=== PATIENT | female | born 1980 | race Caucasian/White ===

== ENCOUNTER 2016-11-27 09:41 | Emergency (ER) | payer OTHER ==
--- NOTE | 2016-11-27 10:04 | UCPHY ---
H & P Time Seen by Provider: 11/27/16 09:56 Patient Type: Established HPI/ROS: Chief complaint. Rib pain HPI. 35-year-old female was snowboarding 2 days ago and fell onto her left side. She had her cell phone in her left chest pocket and then her left elbow also was between the ground and her chest wall. She has pain to her left chest in 2 places. Under her left breast and then laterally under the left armpit. Hurts to breathe and hurts to move but otherwise not particularly short of breath. No other injury in particular to head or neck. 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 This aggravates her symptoms ROS Constitutional. no fever/chills, no weakness Eyes. no problems with vision ENT. no sore throat, no nasal drainage Cardiovascular. Left-sided chest pain Respiratory. no shortness of breath, no cough Abdominal. no abdominal pain, no nausea/vomiting, no diarrhea . no problems urinating MS. no calf pain/swelling, no neck/back pain, no joint pain Skin. no rash Lymph. no swollen glands Neuro. no headache, no dizziness, no difficulty walking or with speech Past Medical/Surgical History: Healthy Social History: , nonsmoker, no alcohol Smoking Status: Never smoked Physical Exam: General Appearance: Alert pleasant well-developed female mild distress vital signs are stable Eyes: Pupils equal and round no pallor or injection. ENT, Mouth: Mucous membranes are moist. Respiratory: There are no retractions, lungs are clear to auscultation. Cardiovascular: Regular rate and rhythm. Gastrointestinal: Abdomen is soft and nontender, no masses, bowel sounds normal. Neurological: Awake and alert, sensory and motor exams grossly normal. Skin: Warm and dry, no rashes. Musculoskeletal: Neck is supple nontender. Chest wall is tender at T7 midclavicular line and in the T6, 7 area mid axillary line. Extremities symmetrical, full range of motion. Psychiatric: Patient is oriented X 3, there is no agitation. Constitutional: Initial Vital Signs Temperature (C) 36.7 C 11/27/16 10:02 Heart Rate 82 11/27/16 10:02 Respiratory Rate 16 11/27/16 10:02 Blood Pressure 163/108 H 11/27/16 10:02 O2 Sat (%) 95 11/27/16 10:02 O2 Delivery Mode Room Air Allergies/Adverse Reactions: No Known Allergies Allergy (Unverified 06/09/11 16:14) Home Medications: Medication Instructions Recorded ETHINYL ESTRADIOL/DROSPIRENONE 04/19/13 [ABBY 28 TABLET] Hydrocodone/APAP 5/325 [Flint 1 each PO Q4-6PRN PRN #14 tab 11/27/16 5/325 (*)] Medical Decision Making - Diagnostics Imaging: Chest x-ray interpreted by me shows no evidence of fracture or pneumothorax ED Course/Re-evaluation: Re-evaluation and patient is stable. She and I discussed imaging study results, treatment plan including criteria for return importance of follow-up and further evaluation. She expresses understanding and agreement Work excuse for the next 2 days Differential Diagnosis: I considered rib fracture, contusion, pneumothorax. This appears to be contusion Departure - Departure Disposition: Home, Routine, Self-Care Clinical Impression: Chest wall contusion Qualifiers: Encounter type: initial encounter Laterality: left Qualified Code(s): S20.212A - Contusion of left front wall of thorax, initial encounter Condition: Good Instructions: Rib Contusion (ED) Additional Instructions: Heat to sore area. Ibuprofen 600 mg every 6 hours, hydrocodone in addition as needed for pain. Activity as tolerated. Return for worsening pain, trouble breathing. Re-evaluation in 4-5 days if not improving Referrals: NONE *PRIMARY CARE P,. [Primary Care Provider] - As per Instructions Lin Cisneros MD [Medical Doctor] - 3-4 days, if not improved Stand Alone Forms: Work Excuse Prescriptions: Hydrocodone/APAP 5/325 [Flint 5/325 (*)] 1 each PO Q4-6PRN PRN #14 tab PRN Reason: Pain, Moderate - PQRS PQRS Measurement: 134: Depression screening and followup, PRIME MD-PHQ2 (12 years and older) Over the last 2 weeks, how often have you been bothered by any of the following problems? 1. Feeling down, depressed, or hopeless? 2. Little interest or pleasure in doing things? Patient answered no to both 1 and 2 130: Documentation of medications. Reviewed all patient medications, doses, route and frequency. 226: Do you smoke? No.
[2016-11-27 10:06] VITALS: RESP 16; TEMP 98.1
[2016-11-27 11:18] VITALS: BP 144/94; PULSE 64; O2SAT 97
== END 2016-11-27 10:45 | disposition home or self-care (01) ==
LOC: CED 09:41
DX: S20.212A Contusion of left front wall of thorax, initial encounter (principal); W19.XXXA Unspecified fall, initial encounter
CPT/HCPCS: 71010-PO; 99214-PO; G0463-PO

== ENCOUNTER 2018-09-08 11:10 | Emergency (ER) | payer OTHER ==
[2018-09-08 12:32] LABS: PLATELET COUNT 277 10^3/uL (150-400)
[2018-09-08] MEDS ORDERED: IOPAMIDOL (ISOVUE 370) 100 ML BTL IV ONE (14:25)
--- NOTE | 2018-09-08 14:29 | EDPHY ---
HPI/HX/ROS/PE/MDM Narrative: CLINICAL IMPRESSION: Right lower quadrant pain ASSESSMENT/PLAN: Patient is a 37 year old female with no significant medical history who presents to the emergency department complaining of intermittent and escalating RLQ pain that has been ongoing for 3 weeks. Patient is afebrile, in no acute distress not toxic appearing. Her abdomen was soft, mild tenderness to palpation in the very low RLQ. CBC revealed no leukocytosis or shift. Her vital signs were reviewed and there was no evidence of sepsis or serious bacterial illness. BMP grossly normal. UA dip with no evidence of infection. Pelvic US with normal flow, no adnexal mass, no evidence of TOA or torsion. Discussed CT for further evaluation however patient refuses at this time and would prefer continuing workup as an outpatient. It is unclear the exact etiology of her pain however her benign abdominal exam and normal laboratory studies were very reassuring. With symptoms ongoing for 3 weeks, I have a low clinical suspicion for etiologies to include acute appendicitis, cholecystitis, kidney stone, pancreatitis, pyelonephritis, perforated viscus, diverticulitis, hernia, AAA, mesenteric ischemia, or additional emergent intra-abdominal process. negative which rules out ectopic . On repeat examination the patient is well appearing, her abdomen remained soft without evidence of a surgical abdomen. The patient is well established with her primary care provider although we do not have one listed and understands the importance of close follow-up. Strict return precautions discussed- she will return for worsening or uncontrolled pain, fever, N/V, CP, SOB or for any other new, worsening or worrisome symptoms. Patient and both verbalize understanding and are in agreement with the plan. Case discussed with Dr. Pagan DIFFERENTIAL DX: Abdominal pain in a female including but not limited to ovarian cyst, pelvic inflammatory disease, ovarian torsion, urinary tract infection, and appendicitis. ED COURSE: 1332: Case discussed with Dr. Pagan 1425: Results discussed with Dr. Pagan. Patient refusing CT scan at this time. 2:47 p.m.: Urine dip with ketones only, no leukocyte esterase or nitrites. No findings to suggest UTI. CHIEF COMPLAINT: Abdominal pain HPI: Patient is a 37 year old female with no significant medical history who presents to the emergency department complaining of intermittent and escalating RLQ pain that has been ongoing for 3 weeks. Patient reports remote PRP injection into her sacrum for treatment of sacral injury mid June. During her recovery she started to experience intermittent RLQ pain described as sharp in nature. It escalated around Carrie and since then she felt that it was significantly improving until 3 days ago. Over the last 3 days she feels that the pain is becoming more frequent, worsens when she is in the seated position. She denies any fever, chills, CP, SOB or vomiting. She has experienced nausea when pain is most intense, no change in appetite. Denies urinary symptoms to include dysuria, hematuria or increased frequency. Patient has loose stools at baseline, no change. No melena or hematochezia. LMP June, she is on BCP. No history of ovarian cyst or abdominal surgery. PMH: Denies Pertinent Past Surgical History: Denies Family History: Non contributory Social History: Denies smoking, denies illicit drug use REVIEW OF SYSTEMS: All other systems negative Constitutional: No fever, no chills, appetite change. Eyes: No discharge, vision change. ENT: No sore throat, congestion, ear pain. Cardiovascular: No chest pain, no palpitations. Respiratory: No cough, no shortness of breath. Gastrointestinal: RLQ/pelvic pain. No vomiting or constipation. Genitourinary: No hematuria, dysuria or flank pain. Musculoskeletal: No back pain, joint swelling, joint pain, myalgias. Skin: No rashes, color change. Neurological: No headache, dizziness, weakness. PHYSICAL EXAM: General Appearance: Well developed, well nourished, no acute distress and not toxic appearing. HENT: Normocephalic, atraumatic. Bilateral external ears are normal. Bilateral tympanic membranes are normal with pearly tian reflex. Nares are clear, mucosa is pink. Oropharynx is clear, uvula is midline. There is no tonsillar enlargement or exudate. The dentition is normal. Eyes: PERRLA, no acute vision change, nystagmus, swelling, discharge, pain or photosensitivity. Conjunctiva pink, no pallor or injection. Neck: Supple, nontender, no lymphadenopathy, no midline pain, FROM, no meningismus. Respiratory: There are no retractions, lungs are clear to auscultation. Cardiac: Regular rate and rhythm, no murmurs or gallops. Gastrointestinal: Her abdomen is soft and nondistended. She is tender in the very low RLQ. Negative McBurney point tenderness, negative Grullon's sign and negative Rovsing. No masses/hernia, no rigidity, guarding or focal peritoneal findings. Neurological: Alert and oriented x 3, CN 2-12 grossly intact, normal gait no ataxia, DTR's intact, normal sensation and strength. Skin: Warm, dry, no rashes, no nodules on palpation. Musculoskeletal: Extremities are symmetrical, full range of motion, no tenderness, deformity, swelling, or erythema. Psychiatric: Patient is oriented X 3, there is no agitation. MEDICAL DECISION MAKING: Patient was seen with Dr. Pagan. Diagnosis: RLQ Pain. New, requires workup Summary: See Assessment and Plan for summary of ED visit. Clinical lab tests: ordered / reviewed. Independent visualization of images, tracing, or specimens: Yes. Decision to obtain medical records or history from someone other than the patient: No. Review / Summarize previous medical records: No. Discussed patient with another provider: Yes, Dr. Pagan. Patient Progress: Stable, discharge. (Rosy Collado) ED Course: The patient was evaluated and managed by the physician mail handler assistant. I have reviewed this chart and I agree with the findings and plan of care as documented , as indicated by my signature. I am the secondary supervising physician. ( Samantha Pagan) - Data Points Laboratory Results: Laboratory Results 09/08/18 11:45 09/08/18 11:45 General Initial Vital Signs: Initial Vital Signs Temperature (C) 36.9 C 09/08/18 11:12 Heart Rate 88 09/08/18 11:12 Respiratory Rate 15 09/08/18 11:12 Blood Pressure 136/106 H 09/08/18 11:12 O2 Sat (%) 98 09/08/18 11:12 O2 Delivery Mode Room Air Allergies/Adverse Reactions: No Known Allergies Allergy (Unverified 06/09/11 16:14) Home Medications: Medication Instructions Recorded ETHINYL ESTRADIOL/DROSPIRENONE 04/19/13 [ABBY 28 TABLET] Departure - Departure Disposition: Home, Routine, Self-Care Clinical Impression: Right lower quadrant pain Condition: Good Instructions: Acute Abdominal Pain (ED) Additional Instructions: DISCHARGE INSTRUCTIONS FROM YOUR DOCTOR Thank you for visiting our emergency department today. Please keep in mind that discharge from the emergency department does not mean that there is nothing wrong - it simply means that we have not identified an emergency condition that requires further evaluation or treatment in the hospital. You should always plan to follow up with primary care for re-evaluation of your condition in the next 2-3 days. Rest, push non-diuretic, non-caffeinated fluids, clear liquid diet, then a BRAT diet (bananas, rice, applesauce, toast), then slowly advance diet to normal. Attempt small frequent meals. For pain control: You may take Tylenol, I recommend 500-1000 mg every 6-8 hours as needed. Take with food and a full glass of water. Stop taking if this is upsetting her stomach. Do not exceed [3000/4000] mg in a 24 hr period. You may also take ibuprofen, recommend 400 mg every 6 hr. Take with food and a full glass of water. Stop taking if this upsets her stomach. Do not exceed 2400 mg in a 24 hr period. Schedule a follow-up appointment with your primary care physician in the next 1- 2 days for re-evaluation. Bring a copy of your test results with you to that appointment. Return for increased or unmanageable pain, new site or character of pain, flank pain, groin pain, pelvic pain, development of fever, chills, recurrent vomiting , vomiting blood or coffee grounds, diarrhea, constipation, bloody stools, black tarry stools, burning or pain with urination, bloody urine, inability to urinate, decreased urine output or other signs of dehydration, dizziness, weakness, fainting, difficulty breathing or swallowing, chest pain, or for any other new, worsening or worrisome symptoms. People present with illnesses and injuries in different ways, and it is always possible that we have missed something. You may always return for re-evaluation if symptoms worsen or if they are not improving or if you develop new/different symptoms. Again, thank you for choosing our emergency department. We hope that you feel better. Referrals: NONE *PRIMARY CARE P,. [Primary Care Provider] - As per Instructions Wendi Carter MD [Medical Doctor] - 2-3 days, call for appt.
[2018-09-08 15:02] VITALS: BP 146/99
== END 2018-09-08 15:01 | disposition home or self-care (01) ==
DX: R10.11 Right upper quadrant pain (principal)
CPT/HCPCS: Q9967